=== PATIENT | female | born 1985 | race Caucasian/White ===

== ENCOUNTER 2019-03-03 20:02 | Emergency (ER) | payer OTHER ==
[~2019-03-03] VITALS: Wt 56.7 kg
[2019-03-03] MEDS ORDERED: SOD CHLORIDE 0.9% 1,000 ML IV STA (22:22)
[2019-03-03] MEDS ORDERED: ONDANSETRON 4 MG INJ IV STA (22:22)
[2019-03-03] MEDS: morphine 2 MG INJ IV STA ×2 (22:39→22:47)
[2019-03-03] MEDS ORDERED: FAMO40TA66 PO (23:57)
[2019-03-03] MEDS ORDERED: MAG-19 PO (23:57)
--- NOTE | 2019-03-03 23:59 | ERD ---
ER Documentation Chief Complaint Chief Complaint AP X'S 30 MIN HPI 34-year-old female presents with generalized diffuse abdominal pain that she has had for about an hour. No nausea vomiting or diarrhea. No dysuria hematuria frequency. No change after eating. Denies possibility of . No alleviating or exacerbating factors. ROS All systems reviewed and are negative except as per history of present illness. Medications Home Meds Active Scripts Famotidine* (Pepcid*) 40 Mg Tablet, 40 MG PO BID, #30 TAB Prov:WAGNER HAYES PA-C 03/03/19 Magaldrate/Simethicone* (Mylanta*) 355 Ml Susp, 30 ML PO QID PRN for GASTROINTESTINAL UPSET, #1 BOTTLE Prov:WAGNER HAYES PA-C 03/03/19 Allergies Allergies: Coded Allergies: No Known Allergy (Unverified , 03/03/19) PMhx/Soc Medical and Surgical Hx: pt denies Medical Hx, pt denies Surgical Hx History of Surgery: No Hx Neurological Disorder: No Hx Respiratory Disorders: No Hx Cardiac Disorders: No Hx Psychiatric Problems: No Hx Miscellaneous Medical Probl: No Hx Alcohol Use: No Hx Substance Use: No Hx Tobacco Use: No FmHx Family History: No diabetes Physical Exam Vitals Vital Signs Date Temp Pulse Resp B/P (MAP) Pulse Ox O2 O2 Flow FiO2 Time Delivery Rate 03/03/19 100.2 66 18 122/63 100 20:11 (82) Physical Exam INITIAL VITAL SIGNS: Reviewed by me GENERAL: Awake, alert and oriented x 4, well appearing, nontoxic, speaking in full sentences. No acute distress HEAD: Atraumatic NECK: Supple. No masses. Full range of motion. No meningismus. No midline tenderness. EYES: EOMI. PERRL. RESPIRATORY: Clear to auscultation bilaterally. Symmetric chest wall rise. No wheezing or rales. No accessory muscle use. CV: Regular rate and rhythm. No murmurs, rubs, or gallops. ABDOMEN: Soft, non-distended. Mild diffuse tenderness Negative [place]. Negative McBurneys point tenderness. No CVA tenderness bilaterally. No guardin g. No rebound. Result Diagram: 03/03/19223703/03/192237 Results 24 hrs Laboratory Tests Test 03/03/19 22:35 03/03/19 22:38 03/03/19 22:39 POC Beta HCG, Qualitative NEGATIVE White Blood Count 8.5 10^3/ul Red Blood Count 4.78 10^6/ul Hemoglobin 14.5 g/dl Hematocrit 43.0 % Mean Corpuscular Volume 90.0 fl Mean Corpuscular Hemoglobin 30.3 pg Mean Corpuscular 33.7 g/dl Hemoglobin Concent Red Cell Distribution Width 11.6 % Platelet Count 292 10^3/UL Mean Platelet Volume 10.0 fl Immature Granulocytes % 0.200 % Neutrophils % 54.3 % Lymphocytes % 36.1 % Monocytes % 7.6 % Eosinophils % 1.2 % Basophils % 0.6 % Nucleated Red Blood Cells % 0.0 /100WBC Immature Granulocytes # 0.020 10^3/ul Neutrophils # 4.6 10^3/ul Lymphocytes # 3.1 10^3/ul Monocytes # 0.7 10^3/ul Eosinophils # 0.1 10^3/ul Basophils # 0.1 10^3/ul Nucleated Red Blood Cells # 0.0 10^3/ul Sodium Level 141 mmol/L Potassium Level 3.8 mmol/L Chloride Level 103 mmol/L Carbon Dioxide Level 29 mmol/L Anion Gap 9 Blood Urea Nitrogen 12 mg/dl Creatinine 0.64 mg/dl Est Glomerular Filtrat > 60 mL/min Rate mL/min Glucose Level 91 mg/dl Calcium Level 10.0 mg/dl Total Bilirubin 1.0 mg/dl Direct Bilirubin 0.00 mg/dl Indirect Bilirubin 1.0 mg/dl Aspartate Amino Transf (AST/SGOT) 20 IU/L Alanine 22 IU/L Aminotransferase (ALT/SGPT) Alkaline Phosphatase 62 IU/L Total Protein 7.9 g/dl Albumin 4.7 g/dl Globulin 3.20 g/dl Albumin/Globulin Ratio 1.46 Lipase 80 U/L Urine Color YELLOW Urine Clarity SLIGHTLY CLOUDY Urine pH 6.0 Urine Specific [place] 1.011 Urine Ketones NEGATIVE mg/dL Urine Nitrite NEGATIVE mg/dL Urine Bilirubin NEGATIVE mg/dL Urine Urobilinogen NEGATIVE mg/dL Urine Leukocyte Esterase TRACE [place]/ul Urine Microscopic RBC 2 /HPF Urine Microscopic WBC 5 /HPF Urine Squamous Epithelial Cells FEW /HPF Urine Hemoglobin 1+ mg/dL Urine Glucose NEGATIVE mg/dL Urine Total Protein NEGATIVE mg/dl Current Medications Medications Dose Sig/Jackelyn Start Time Status Last (Trade) Ordered Route PRN Stop Time Admin Dose Reason Admin Sodium 1,000 ml @ Q1H STAT 03/03/19 DC 03/03/19 Chloride 1,000 mls/hr IV 22:22 03/03/19 22:36 23:21 Morphine 2 mg ONCE STAT 03/03/19 DC Sulfate IV 22:22 03/03/19 (morphine) 22:23 Ondansetron 4 mg ONCE STAT 03/03/19 DC 03/03/19 HCl (Zofran IV 22:22 03/03/19 22:38 Inj) 22:23 Procedures/MDM The differential diagnosis includes but is not limited to appendicitis, tennille lithiasis, cholecystitis, pancreatitis, hepatitis, gastritis, peptic ulcer disease, bowel obstruction, diverticulitis, renal disease including stones, torsion, AAA, pyelonephritis, and others. Laboratory analysis shows no evidence of acute emergent abnormality. No evidence of significant leukocytosis suggesting systemic infection or severe anemia. No evidence of acute renal or liver failure, no evidence of severe alkalosis or acidosis. CT scan is nonacute. Patient counseled regarding my diagnostic impression and care plan. Prior to discharge all questions answered. Pt agrees with treatment plan and understands strict return precautions. Pt is instructed to follow up with primary care provider within 24-48 hours. Precautionary instructions provided including instructions to return to the ER if not improving or for any worsening or changing symptoms or concerns. Departure Diagnosis: Primary Impression: Abdominal pain Condition: Stable Patient Instructions: Abdominal Pain Additional Instructions: Llame al doctor YUMIKO y anastacia leanne GENA PARA DENTRO DE 1-2 REED.Dgale a la secretaria que nosotros le instruimos hacer esta gena.Avise o llame si cordoba condicin se empeora antes de la gena. Regresa aqui si peor o no mejor. WAGNER HAYES PA-C March 03, 2019 23:59
[2019-03-04 00:18] VITALS: BP 108/60; PULSE 61; RESP 18
== END 2019-03-04 00:19 | disposition home or self-care (01) ==
LOC: FTE 20:02
DX: R10.84 Generalized abdominal pain (principal)
CPT/HCPCS: 36415; 74176; 80053; 81001; 81025; 83690; 85025; 96361; 96374; 99285; J2270; J2405; J7030